=== PATIENT | female | born 1945 | race Caucasian/White ===

== ENCOUNTER 2017-04-03 05:46 | Inpatient (IN) | payer MEDICARE, BC ==
[2017-03-29 15:13] LABS: BASOPHILS 0.2 %; BASOPHILS ABSOLUTE 0.02 10/3/uL (0.0-0.16); EOSINOPHILS 2.8 %; EOSINOPHILS ABSOLUTE 0.26 10/3/uL (0.0-0.53); HEMATOCRIT 40.1 % (36.0-48.0); HEMOGLOBIN 13.7 g/dL (12.0-16.0); IMMATURE GRANULOCYTES 0.2 %; IMMATURE GRANULOCYTES ABSOLUTE 0.02 10/3/uL (0.0-0.11); LYMPHOCYTES 24.7 %; LYMPHOCYTES ABSOLUTE 2.29 10/3/uL (0.67-4.30); MEAN CORPUS HGB CONC 34.2 g/dL (32.0-36.0); MEAN CORPUSCULAR VOLUME 87.9 fL (80-100); MEAN PLATELET VOLUME 10.5 fL (9.2-13.0); MONOCYTES 6.1 %; MONOCYTES ABSOLUTE 0.57 10/3/uL (0.21-1.20); NEUTROPHILS ABSOLUTE 6.11 10/3/uL (2.02-8.40); PLATELET COUNT 290 10/3/uL (150-400); RED CELL COUNT 4.56 10/6/uL (4.0-5.6); WHITE BLOOD CELLS 9.3 10/3/uL (4.5-10.5)
[2017-03-29 15:17] LABS: ASCORBIC ACID (UR NOT ORDER) NEG (NEG); BILIRUBIN, URINE NEGATIVE (NEG); KETONE, URINE NEGATIVE (NEG); LEUKOCYTE ESTERASE(NOT OR LARGE (NEG); WBC (NOT ORDERED) (RFLEX) 117 (0-5)
[2017-03-29 15:18] LABS: PROTIME (NOT ORD) 13.2 SEC (12.0-14.5)
[2017-03-29 15:19] LABS: MANUAL DIFF NO %
[2017-03-29 15:27] LABS: A/G RATIO 1.2 (0.7-1.9); ALBUMIN 3.9 G/DL (3.5-5.0); ALKALINE PHOSPHATASE 60 U/L (45-117); BUN (BLOOD UREA NITROGEN) 18 MG/DL (6-23); CALCIUM, SERUM 9.2 MG/DL (8.5-10.4); CHLORIDE, SERUM 105 MMOL/L (96-112); CO2 (CARBON DIOXIDE) 31 MMOL/L (24-34); CREATININE 0.88 MG/DL (0.55-1.02); GFR AFRICAN AMERICAN 76 ML/MIN (>=60); GFR NON AFRICAN AMERICAN 65 ML/MIN (>=60); GLOBULIN 3.2 G/DL (2.5-4.1); GLUCOSE, SERUM 81 MG/DL (60-99); POTASSIUM, SERUM 4.2 MMOL/L (3.5-5.3); SGOT(AST) 19 U/L (5-40); SGPT(ALT) 30 U/L (5-65); SODIUM, SERUM 141 MMOL/L (135-148); TOTAL BILIRUBIN 0.7 MG/DL (0-1.2); TOTAL PROTEIN 7.1 G/DL (6.0-8.5)
--- NOTE | ~2017-04-03 | DS ---
Discharge Summary [facility] [address] [place]. [address] NAME: AZAM MCLEAN : 43 STATUS : DIS IN PAT#: [id number] AGE: 72 ADM/REG DATE : 04/03/17 MR#: [id number] REPORT SERV DATE: 04/19/17 DICTATED BY: HADLEY WADE DATE: 04/19/17 REPORT STATUS : Draft TRANSCRIBED BY: SILVIA DATE: 04/19/17 Data Collection from hospitalization DISCHARGE DIAGNOSES: 1. Severe valgus osteoarthritis of the right knee. 2. Gastroesophageal reflux disease. 3. History of transient ischemic attack. CONSULTATIONS: None. PROCEDURES PERFORMED: Right total knee arthroplasty on 04/03/2017. PATHOLOGY: Bone and soft tissue, right knee arthroplasty - degenerative joint disease with eburnation. No infection or neoplasm. DISCHARGE MEDICATIONS: Os-Zuhair +D 500 mg daily, vitamin D3 1000 units every morning, CoQ10 100 mg daily, glucosamine one tablet daily, Dilaudid 2 mg every four hours as needed, fish oil 1000 mg daily, and Coumadin 2.5 mg daily. CONDITION AT DISCHARGE: Stable. DISPOSITION: The patient was discharged home on a regular diet with activities as instructed. She would follow up with me on 04/18/2017. She would follow up at [facility] in [place] for physical therapy and lab work on 04/08/2017. HOSPITAL COURSE: This is a 72-year-old female, who has severe valgus osteoarthritis of the right knee. She had unrelenting pain which had been refractory to medical management. Treatment options were discussed and it was elected to proceed with surgical intervention. She was admitted to the hospital at this time for further evaluation and treatment. Upon admission, she was taken to the operating room where she underwent the above-mentioned procedure. She tolerated this well. There were no complications. On postop day #1, she was evaluated by Occupational and Physical Therapy. She did have some nausea and vomiting. Her dressings were clean, dry, and intact. She had no edema. She was medically stable. Over the next couple of days, she continued to progress. We encouraged her to mobilize with Physical Therapy. NEGRA hoses remained in place. Discharge planning was performed. On 04/06/2017, discharge instructions were given. Due to her improved and stable condition, she was discharged home with the above-stated instructions. Information collected by: Suzie Cordon I submit the above information as my discharge summary. TG/SILVIA Hadley Wade M.D. / [id number] Discharge Summary [address] [address] NAME: AZAM MCLEAN : 43 STATUS : DIS IN PAT#: [id number] AGE: 72 ADM/REG DATE : 04/03/17 MR#: [id number] REPORT SERV DATE: 04/19/17 DICTATED BY: HADLEY WADE DATE: 04/19/17 REPORT STATUS : Draft TRANSCRIBED BY: SILVIA DATE: 04/19/17 CC: Suresh Gottlieb M.D.
--- NOTE | ~2017-04-03 | OP ---
Record Of Operation [facility] [address] [place]. [address] NAME: AZAM NEWELL : 43 STATUS : ADM IN [facility]#: [id number] AGE: 72 ADM/REG DATE : 04/03/17 MR#: [id number] REPORT SERV DATE: 04/03/17 DICTATED BY: HADLEY WADE DATE: 04/03/17 REPORT STATUS : Draft TRANSCRIBED BY: MODL DATE: 04/03/17 DATE OF PROCEDURE: 04/03/2017 PREOPERATIVE DIAGNOSIS: Severe valgus osteoarthritis of the right knee. POSTOPERATIVE DIAGNOSIS: Severe valgus osteoarthritis of the right knee. PROCEDURE: Right total knee arthroplasty. MACHINE RIGGER: Thompson Ignacio. ANESTHESIA: Spinal with MAC. ESTIMATED BLOOD LOSS: 100 mL. COMPLICATIONS: None. DRAINS: ConstaVac x1. TOURNIQUET TIME: Approximately 70 minutes. IMPLANTS: Alberto and Alberto Attune size 5 posterior stabilized right femoral component, size 5 modular tibial tray, with a 6 mm thick posterior stabilized tibial polyethylene insert, the patella was a 38 mm patella. All components were cemented in place with [employer] Simplex bead set bone cement. INDICATIONS FOR SURGERY: Ms Newell is a 72-year-old female with severe valgus osteoarthritis of her right knee. She has had unremitting pain, which has been refractory to medical management. She presents requesting the above-mentioned procedure. Risks of the procedure as detailed in the history and physical, and operative consent were discussed prior to proceeding. She fully understood and has requested to proceed. DESCRIPTION OF PROCEDURE: The patient was brought to the operating room and after induction of anesthesia, was positioned in the supine position. All appropriate pressure points were padded. The operative knee was then prepped and draped in the usual sterile fashion. Time out was performed confirming the appropriate surgical side and site. The leg was exsanguinated with an Alexander wrap and the tourniquet inflated to 350 mmHg pressure. A medial parapatellar approach to the knee was performed. The skin and cutaneous tissues were incised sharply in the midline with a #10 blade. Electrocautery was used as needed to maintain hemostasis. The retinaculum was divided and the extensor mechanism exposed. A median parapatellar arthrotomy was carried out. The medial tibia was exposed subperiosteally and the patellofemoral ligaments divided. The patella was then subluxated laterally and the knee carefully flexed. The knee was d brided of all osteophytes, meniscal remnants in the anterior and posterior cruciate ligaments. Record Of Operation [facility] [place]. [address] NAME: AZAM NEWELL : 43 STATUS : ADM IN PAT#: [id number] AGE: 72 ADM/REG DATE : 04/03/17 MR#: [id number] REPORT SERV DATE: 04/03/17 DICTATED BY: HADLEY WADE DATE: 04/03/17 REPORT STATUS : Draft TRANSCRIBED BY: SILVIA DATE: 04/03/17 Attention was then turned to the distal femur. The intramedullary guide was set at 5 degrees of valgus and secured to the distal femur. The distal femoral resection was then carried out. The femur was then sized to the appropriate block as determined intraoperatively and from templating. The AP cutting block was secured in such a way as to create matched distal and posterior femoral resections in the appropriate rotation. The anterior and posterior femoral cuts were made, chamfer cuts were completed and the box was created for the posterior stabilized femoral component. Attention was then turned to the tibia. The extramedullary alignment guide was set a neutral varus/valgus to match the patient's [place] posterior tibial slope. The tibia was resected, removing 2 to 3 mm, from the most affected side. The tibial fragment was then removed. Attention was then turned to the posterior aspect of the knee and any remaining posterior femoral osteophytes or meniscal remnants were d brided. The patella was then everted and a uniform resection created taking the thickness of the planned patellar component. The cut was checked with a caliper to be sure of the appropriate resection level. The patella was then finally sized and three holes drilled for an oval domed three peg patella. At this point, the varus/valgus alignment of the knee was accessed. The appropriate releases were performed to balance the knee. A trial reduction was performed. The knee came to a full extension. There was 2 to 3 mm of opening to both varus and valgus stress at 30 and 90 degrees of flexion and normal patellar tracking. At this point, all trial components were removed and the final tibial preparation performed. The bony surfaces were copiously irrigated with normal saline and dried and the final components cemented in place. Once the cement had fully cured, the knee was carefully inspected and all extruded cement fragments were removed. A trial reduction was once again performed. Range of motion and stability of the knee were unchanged. The true tibial insert was then impacted in the clean tibial tray. A drain was placed deep through the arthrotomy and the knee was once again irrigated with pulsatile lavage normal saline. The arthrotomy was repaired using interrupted 1-0 Vicryl suture in a mihyvs-mj-hutov fashion. The subcutaneous tissues were approximated with interrupted 2-0 Vicryl suture, the skin stapled. A sterile dressing was applied. The tourniquet was deflated and the patient was taken to the Recovery Room in stable condition. POSTOP PLAN: The patient is to be weightbearing as tolerated with physical therapy to be started per total knee arthroplasty protocol. The patient will be on Coumadin and mechanical deep venous thrombosis prophylaxis. MIGUEL ÁNGEL/SILVIA Hadley Wade M.D. Record Of Operation [address] [address] NAME: AZAM NEWELL : 43 STATUS : ADM IN [facility]#: [id number] AGE: 72 ADM/REG DATE : 04/03/17 MR#: [id number] REPORT SERV DATE: 04/03/17 DICTATED BY: HADLEY WADE DATE: 04/03/17 REPORT STATUS : Draft TRANSCRIBED BY: SILVIA DATE: 04/03/17 / [id number] CC: Suresh Gottlieb M.D.
[~2017-04-03 05:46] MED LIST: ALEVE220 MG PO; B COMPLETE PO; CO Q-10100 MG PO; COQ10100 MG OR; CYANO1000T PO; FISH-EPA1000 MG PO; GLUCCHONDR PO; HORMONE PELLETS SC; MULTIPLE VIT PO; OS500+D PO; TUMSROLL PO; VITAMIN D31000 UNIT PO
[2017-04-04 06:27] LABS: HEMOGLOBIN 11.4 g/dL (12.0-16.0)
[2017-04-04 06:28] LABS: HEMATOCRIT 33.4 % (36.0-48.0)
[2017-04-04 06:29] LABS: INTERNATIONAL NORMAL RATI 1.2 UNITS (-); PROTIME (NOT ORD) 14.9 SEC (12.0-14.5)
[2017-04-04 06:40] LABS: CALCIUM, SERUM 8.5 MG/DL (8.5-10.4); CHLORIDE, SERUM 100 MMOL/L (96-112); CO2 (CARBON DIOXIDE) 27 MMOL/L (24-34); CREATININE 0.95 MG/DL (0.55-1.02); GFR AFRICAN AMERICAN 69 ML/MIN (>=60); GFR NON AFRICAN AMERICAN 59 ML/MIN (>=60); POTASSIUM, SERUM 4.1 MMOL/L (3.5-5.3); SODIUM, SERUM 135 MMOL/L (135-148)
[2017-04-04 06:41] LABS: BUN (BLOOD UREA NITROGEN) 13 MG/DL (6-23); GLUCOSE, SERUM 117 MG/DL (60-99)
[2017-04-05 06:04] LABS: HEMATOCRIT 30.9 % (36.0-48.0); HEMOGLOBIN 10.6 g/dL (12.0-16.0)
[2017-04-05 06:10] LABS: INTERNATIONAL NORMAL RATI 2.6 UNITS (-)
[2017-04-05 06:12] LABS: PROTIME (NOT ORD) 27.8 SEC (12.0-14.5)
[2017-04-05] MEDS ORDERED: DIL2TAB PO (10:09)
[2017-04-05] MEDS ORDERED: C25 PO (10:11)
[2017-04-06 05:57] LABS: HEMATOCRIT 30.3 % (36.0-48.0); HEMOGLOBIN 10.3 g/dL (12.0-16.0)
[2017-04-06 06:14] LABS: INTERNATIONAL NORMAL RATI 2.2 UNITS (-); PROTIME (NOT ORD) 24.6 SEC (12.0-14.5)
== END 2017-04-06 15:27 | disposition home or self-care (01) | DRG 470 ==
LOC: SDC/OF 05:46 → PACU 11:27 → 3SO 12:36
PROVIDERS: Specialist
PROC: 0SRC0J9 Replacement of Right Knee Joint with Synthetic Substitute, Cemented, Open Approach (ICD-10-PCS; principal; 2017-04-03 09:00)
DX: M17.11 Unilateral primary osteoarthritis, right knee (principal); K21.9 Gastro-esophageal reflux disease without esophagitis; Z83.3 Family history of diabetes mellitus; Z80.0 Family history of malignant neoplasm of digestive organs; Z80.6 Family history of leukemia; Z86.73 Personal history of transient ischemic attack (TIA), and cerebral infarction without residual deficits
CPT/HCPCS: 36415; 71020; 80048; 80053; 81001; 82962; 85014; 85018; 85025; 85610; 85730; 86850; 86900; 86901; 87077; 87086; 87186; 87641; 88305; 88311; 93005; 97110-GP; 97161-GP; 97166-GO; 97530-GP; A9270-GY; C1776; J0690; J1170; J1580; J1885; J2250; J2270; J2405; J2550; J2795; J3010